=== PATIENT | female | born 1980 | race Caucasian/White ===

== ENCOUNTER 2017-07-07 09:45 | Inpatient (IN) | payer OTHER ==
[~2017-07-07] VITALS: Ht 157.5 cm; Wt 54.0 kg
[2017-07-07 10:45] VITALS: BP 123/83; PULSE 111; RESP 19; Ht 157.5 cm; Wt 54.0 kg
[2017-07-07] MEDS ORDERED: PREN1TAB79 PO (10:47)
[2017-07-07] MEDS: LACTATED RINGER'S 1,000 ML IV SCH ×2 (10:50→20:42)
[2017-07-07] MEDS ORDERED: CEFAZOLIN 2 GM/50 ML (PMX) 50 ML IV SCH (11:00)
[2017-07-07] MEDS ORDERED: OXYTOCIN 30 UNITS/LR 500 ML IV PRN ×2 (11:00→16:00)
[2017-07-07] MEDS ORDERED: MISOPROSTOL 200 MCG TAB PR PRN ×2 (11:00→16:00)
[2017-07-07] MEDS ORDERED: CARBOPROST 250 MCG INJ IM PRN ×2 (11:00→16:00)
[2017-07-07] MEDS ORDERED: METHYLERGONOVINE 0.2 MG INJ IM PRN ×2 (11:00→16:00)
[2017-07-07] MEDS ORDERED: LACTATED RINGER'S 1,000 ML IV ONE (11:06)
[2017-07-07 11:11] LABS: BASOPHILS % 0.2 % (0.0-2.0); EOSINOPHILS % 0.2 % (0.0-7.0); HEMOGLOBIN 11.9 g/dl (12.0-16.0); LYMPHOCYTES # 1.2 10^3/ul (0.8-2.9); LYMPHOCYTES % 9.1 % (15.0-51.0); MEAN CORPUSCULAR HEMOGLOBIN 30.7 pg (29.0-33.0); MEAN CORPUSCULAR VOLUME 90.4 fl (82.0-101.0); MEAN PLATELET VOLUME 10.5 fl (7.4-10.4); MONOCYTE # 0.8 10^3/ul (0.3-0.9); MONOCYTES % 6.3 % (0.0-11.0); NEUTROPHILS % 83.8 % (39.0-77.0); PLATELET COUNT 249 10^3/UL (140-415); RED BLOOD COUNT 3.87 10^6/ul (4.20-5.40); RED CELL DISTRIBUTION WIDTH 12.9 % (11.5-14.5); WHITE BLOOD COUNT 12.7 10^3/ul (4.8-10.8)
[2017-07-07] MEDS ORDERED: FENTAnyl 50 MCG/ML VIAL ONE (11:27)
[2017-07-07] MEDS ORDERED: morphine SULFATE/PF (10 MG/10 ML) INJ ONE (11:27)
[2017-07-07] MEDS ORDERED: ONDANSETRON 4 MG INJ IV ONE (11:30)
[2017-07-07] MEDS ORDERED: CITRIC ACID/NA CITRATE 30 ML CUP PO ONE (11:30)
[2017-07-07 11:39] LABS: INR 0.88; PROTIME 11.9 Sec (12.2-14.2); PT RATIO 0.9
[2017-07-07 11:40] LABS: PARTIAL THROMBOPLASTIN TIME 28.1 Sec (25.0-35.0)
[2017-07-07] MEDS ORDERED: METOCLOPRAMIDE 10 MG INJ ONE (13:05)
[2017-07-07] MEDS ORDERED: PHENYLephrine (100 MCG/ML) 5ML SYG ONE (13:05)
--- NOTE | 2017-07-07 14:30 | OPR ---
Operative Report Planned Procedure Free Text/Dictation 36 years old female 6 para 1 history of previous EDC is July 22, 2017 admitted to [facility] for repeat C- section due to the history of myomectomy was recommended by the perinatologist delivery at 37 weeks patient has signed consent bilateral tubal ligation at the time of her section, failure rate of tubal ligation increased risk of ectopic should failure to conceive and discussed with the patient would like to proceed with a and tubal ligation. Procedure date Jul 07, 2017 Procedure(s) Repeat bilateral tubal ligation Performed by: MACIEJ CID MD Assisting provider: AMY CHRISTOPHER MD Anesthesiologist: SMOOTH CAO MD Pre-procedure diagnosis 37 weeks 6 days history of previous and myomectomy Anesthesia Type: spinal Procedure Description Under satisfactory [] anesthesia, the patient was prepped and draped and placed in a supine position, tilted to the left. Pfannenstiel incision was made, carried through the subcutaneous tissue. Bleeders brought under control with electrocautery. Fascia incised to the length of the incision. Rectus muscles from the fascia, divided midline. Peritoneum exposed, entered through a transverse incision. Exploration of abdomen revealed gravid uterus both tubes and ovaries present. Bladder flap was developed. Transverse incision was made in the lower segment of the uterus. Amniotic sac ruptured. [] amniotic fluid noted light baby girl was delivered and gated vertex. [] Nasal oropharyngeal suction was performed. The baby was handed to the team for immediate attention. placenta delivered manually intact. Uterine cavity was cleaned with wet sponge and drainage established. Uterus closed in 2 layers using [ Monocryl #1] in continuous fashion. Lateral tubal ligation performed identifying the right fallopian tube was densely adhered the ovary segment of the fallopian tube was grasped by a Mirlande suture material used #0 plain catgut was reinforced with the same suture material that portion of the tube was excised cut end of the tube was cauterized specimen submitted to the pathology same procedure performed for the opposite side the specimen together sent to the pathology peritoneal cavity irrigated with warm saline. Sponge, needle and instrument count reported to be correct. Abdominal peritoneum closed with [0 chromic catgut] continuously. Rectus muscle approximated with 0 chromic catgut . Fascia closed with [#1 PDS], subcutaneous tissue approximated with few interrupted 2-0 chromic catgut and closed with N sorb. Estimated blood loss 200 []mL. Urine bag contained [100]mL of clear urine patient tolerated procedure well and transferred to recovery room in good condition. Post-Procedure Findings: Live Baby girl 9 and9 Specimen removed: No Complications: None Pt Condition post procedure: stable Physician Certification I, the undersigned physician, hereby certify that I have discussed the procedure described in this consent form with this patient (or the patient's legal credit representative), including: * The risk and benefits of the procedure; * Any adverse reactions that may reasonably be expected to occur; * Any alternative efficacious methods of treatment which may be medically viable ; * The potential problems that may occur during recuperation; * Potential for blood transfusion and associated risks/benefits; and * Any research or economic interest I may have regarding this treatment. I further certify that the patient/legally responsible person was encouraged to ask question and that all questions were answered. MACIEJ CID MD Jul 07, 2017 14:26
--- NOTE | 2017-07-07 14:39 | HP ---
Date/Time of Note Date/Time of Note DATE: 07/07/17 TIME: 14:31 OB - History Hx of Present Free Text/Dictation 36 years old female 6 para 1 T1 PT 0 SAB 1 IAB 3 L1 to [facility] 37 weeks and 6 days with a history of previous myomectomy and section recommended by the perinatologist delivery at 37 weeks gestation Patient has been under the care of the [facility] was not complicated with gestational diabetes -induced hypertension or any other medical or surgical condition or past history myomectomy 2015 breast augmentation 1996 removal of the breast implant 2011. 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 Chief Complaint: 37 weeks and 6 days previous section and myomectomy itzel Estimated Due Date: Jul 22, 2017 : 6 Para: 1 Spontaneous : 1 Therapeutic : 3 Care: Good Care Ultrasounds: Normal mid trimester US Obstetrical Complications: None Medical Complications: None Past Family/Social History * Past Medical, Surgical, Family and Obstetric Histories reviewed from chart. Rubella: immune RPR/VDRL: Negative GBS Status: Negative OB Admission Exam Vital Signs Vital Signs Vital Signs Date Time Temp Pulse Resp B/P Pulse Ox O2 Delivery O2 Flow Rate FiO2 07/07/17 10:45 98.2 111 19 123/83 99 Room Air Physical Exam HEENT: WNL Heart: Rhythm Normal Lungs: Clear, Equal Abdomen: WNL Extremities: Normal Reflexes: Normal Cervical Dilatation: Fingertip Effacement: 25% Station: -2 Membranes: Intact Heart Rate: 130's Accelerations: Accelerations Present Varibility: Moderate Contractions on Admission: >10 Minutes Apart Intensity: Mild Last 72 hours Lab Results CBC & BMP 07/07/17 10:15 MACIEJ CID MD Jul 07, 2017 14:39
[2017-07-07] MEDS ORDERED: DIPHENHYDRAMINE 50 MG INJ IV PRN (15:00)
[2017-07-07] MEDS ORDERED: NALBUPHINE HCL (10 MG/1 ML) INJ IV PRN (15:00)
[2017-07-07] MEDS ORDERED: NALOXONE (0.4 MG/ML) INJ IV PRN (15:00)
[2017-07-07] MEDS ORDERED: HYDROmorphONE 1 MG/ML SYG IV PRN ×2 (15:00)
[2017-07-07] MEDS ORDERED: KETOROLAC 30 MG INJ IV PRN (15:00)
[2017-07-07] MEDS ORDERED: TRIMETHOBENZAMIDE 100 MG/ML VIAL IM PRN (15:00)
[2017-07-07] MEDS ORDERED: ONDANSETRON 4 MG INJ IV PRN (15:00)
[2017-07-07] MEDS: OXYTOCIN 30 UNITS/LR 500 ML IV SCH ×3 (15:36→23:36)
[2017-07-07] MEDS ORDERED: HYDROCODONE/APAP (5/325) TAB PO PRN ×2 (16:00)
[2017-07-07] MEDS ORDERED: OXYCODONE/ACETAMINOPHEN (5/325) TAB PO PRN ×2 (16:00)
[2017-07-07] MEDS ORDERED: CEFAZOLIN 1 GM/50 ML (PMX) 50 ML IVPB SCH (16:00)
[2017-07-07] MEDS ORDERED: LANOLIN 7 GM TUBE TOP PRN (16:00)
[2017-07-07 17:00] VITALS: BP 106/72; PULSE 72; RESP 19
[2017-07-07 18:00] VITALS: BP 102/72; PULSE 70; RESP 18
[2017-07-07 20:00] VITALS: BP 100/52; PULSE 70; RESP 20
[2017-07-08] MEDS: OXYTOCIN 30 UNITS/LR 500 ML IV SCH ×4 (03:36→15:36)
[2017-07-08 04:11] VITALS: BP 105/68; PULSE 68; RESP 20
[2017-07-08] MEDS: LACTATED RINGER'S 1,000 ML IV SCH (05:02)
[2017-07-08 08:00] VITALS: BP 97/61; PULSE 78; RESP 18
[2017-07-08] MEDS: SENNA/DOCUSATE NA (8.6MG/50MG) TAB PO SCH ×2 (08:58→21:18)
--- NOTE | 2017-07-08 10:35 | PN ---
Date/Time of Note Date/Time of Note DATE: 07/08/17 TIME: 10:33 OB Subjective Subjective Subjective Post day 1 Vital signs stable abdomen soft uterus firm incision healing and dry bowel sounds present ambulation encouraged extremities normal MACIEJ CID MD Jul 08, 2017 10:35
[2017-07-08 10:54] LABS: BASOPHILS % 0.1 % (0.0-2.0); EOSINOPHILS % 0.1 % (0.0-7.0); HEMATOCRIT 34.1 % (37.0-47.0); HEMOGLOBIN 11.4 g/dl (12.0-16.0); LYMPHOCYTES % 7.5 % (15.0-51.0); MEAN CORPUSCULAR HEMOGLOBIN 30.2 pg (29.0-33.0); MEAN CORPUSCULAR HGB CONC 33.4 g/dl (32.0-37.0); MEAN CORPUSCULAR VOLUME 90.5 fl (82.0-101.0); MEAN PLATELET VOLUME 10.4 fl (7.4-10.4); MONOCYTE # 0.8 10^3/ul (0.3-0.9); MONOCYTES % 5.5 % (0.0-11.0); NEUTROPHILS % 86.3 % (39.0-77.0); PLATELET COUNT 255 10^3/UL (140-415); RED BLOOD COUNT 3.77 10^6/ul (4.20-5.40); RED CELL DISTRIBUTION WIDTH 13.2 % (11.5-14.5); WHITE BLOOD COUNT 13.8 10^3/ul (4.8-10.8)
[2017-07-08 12:00] VITALS: BP 98/55; PULSE 80; RESP 18
[2017-07-08 15:55] VITALS: BP 118/82; PULSE 84; RESP 18
[2017-07-08] MEDS: IBUPROFEN 600 MG TAB PO SCH ×2 (18:00→23:48)
[2017-07-08 20:00] VITALS: BP 110/68; PULSE 79; RESP 16
[2017-07-09 04:00] VITALS: BP 114/59; PULSE 77; RESP 19
[2017-07-09] MEDS: IBUPROFEN 600 MG TAB PO SCH ×4 (06:54→23:56)
[2017-07-09 08:00] VITALS: BP 101/51; PULSE 64; RESP 18
[2017-07-09] MEDS: SENNA/DOCUSATE NA (8.6MG/50MG) TAB PO SCH ×2 (09:00→20:42)
--- NOTE | 2017-07-09 11:03 | PN ---
Date/Time of Note Date/Time of Note DATE: 07/09/17 TIME: 11:01 OB Subjective Subjective Subjective July 09, 2017 Post C section day 2 Doing Well Afebrile Ambulatory Chest Clear Breasts are soft , Nipples are intact Abdomen is soft Fundus is firm Moderate amount of lochia Incision is clean ,No evidence of infection No calf tenderness No ankle edema Current Medications Medications (Trade) Dose Ordered Sig/Ami Route PRN Reason Start Time Stop Time Status Last Admin Dose Admin Lactated Ringer's 1,000 ml @ 125 mls/hr Q8H IV 07/07/17 10:43 07/07/17 15:42 DC 07/07/17 10:50 Cefazolin Sodium/ Dextrose 50 ml @ 100 mls/hr ONCE IV 07/07/17 11:00 07/07/17 15:42 DC Oxytocin/Lactated Ringer's 500 ml @ 0 mls/hr ONCE PRN IV For Hemorrhage Management 07/07/17 11:00 07/07/17 15:42 DC 07/07/17 15:31 Methylergonovine Maleate (Methergine) 0.2 mg ONCE PRN IM VAGINAL BLEEDING 07/07/17 11:00 07/07/17 15:42 DC Carboprost Tromethamine (Hemabate) 250 mcg ONCE PRN IM VAGINAL BLEEDING 07/07/17 11:00 07/07/17 15:42 DC Misoprostol 1000 mcg 1,000 mcg ONCE PRN AL VAGINAL BLEEDING 07/07/17 11:00 07/07/17 15:42 DC Lactated Ringer's (Lr) 1,000 ml @ 1,000 mls/hr Q1H ONCE IV 07/07/17 11:06 07/07/17 12:05 DC 07/07/17 12:02 Ondansetron HCl (Zofran Inj) 4 mg pre-procedure ONCE IV 07/07/17 11:30 07/07/17 11:31 DC 07/07/17 12:03 Citric Acid/ Sodium Citrate (Bicitra) 30 ml PRE-OP ONCE PO 07/07/17 11:30 07/07/17 11:31 DC 07/07/17 12:03 Fentanyl (Sublimaze) 100 mcg STK-MED ONCE .ROUTE 07/07/17 11:27 07/07/17 11:28 DC Morphine Sulfate (Duramorph) 10 mg STK-MED ONCE .ROUTE 07/07/17 11:27 07/07/17 11:28 DC Metoclopramide HCl (Reglan) 10 mg STK-MED ONCE .ROUTE 07/07/17 13:05 07/07/17 13:06 DC Phenylephrine HCl (Eder-Synephrine Inj Syg) 500 mcg STK-MED ONCE .ROUTE 07/07/17 13:05 07/07/17 13:06 DC Naloxone HCl (Narcan) 0.1 mg Q2M PRN IV FOR RESP RATE 8 OR LESS 07/07/17 15:00 07/08/17 14:59 DC Ketorolac Tromethamine (Toradol) 30 mg Q6H PRN IV PAIN 07/07/17 15:00 07/08/17 14:59 DC 07/08/17 14:38 Hydromorphone HCl (Dilaudid) 0.2 mg Q3H PRN IV PAIN LEVEL 1-5 07/07/17 15:00 07/08/17 14:59 DC Hydromorphone HCl (Dilaudid) 0.4 mg Q3H PRN IV PAIN LEVEL 6-10 07/07/17 15:00 07/08/17 14:59 DC Diphenhydramine HCl (Benadryl) 25 mg Q6H PRN IV ITCHING 07/07/17 15:00 07/08/17 14:59 DC Nalbuphine HCl (Nubain) 5 mg ONCE PRN IV ITCHING 07/07/17 15:00 07/08/17 14:59 DC Ondansetron HCl (Zofran Inj) 4 mg Q6H PRN IV NAUSEA AND/OR VOMITING 07/07/17 15:00 07/08/17 14:59 DC Trimethobenzamide HCl (Tigan) 200 mg Q6H PRN IM NAUSEA AND/OR VOMITING 07/07/17 15:00 07/08/17 14:59 DC Miscellaneous Information (* Miscellaneous Pharmacy Order) Duramorph: 0.2 mg Spi... GIVEN XX 07/07/17 15:00 07/07/17 15:42 DC Acetaminophen/ Hydrocodone Bitart ([place] (5/325)) 1 tab Q4H PRN PO PAIN LEVEL 4-6 07/07/17 16:00 Acetaminophen/ Hydrocodone Bitart ([place] (5/325)) 2 tab Q4H PRN PO PAIN LEVEL 7-10 07/07/17 16:00 Oxycodone/ Acetaminophen (Percocet (5/ 325)) 1 tab Q4H PRN PO PAIN LEVEL 4-6 07/07/17 16:00 Oxycodone/ Acetaminophen (Percocet (5/ 325)) 2 tab Q4H PRN PO PAIN LEVEL 7-10 07/07/17 16:00 Ibuprofen (Motrin) 600 mg Q6 PO 07/08/17 18:00 07/09/17 06:54 Simethicone (Mylicon) 160 mg Q8H PRN PO DISTENSION/GAS/BLOATING 07/07/17 16:00 07/08/17 15:06 Senna/Docusate Sodium (Senokot-S) 1 tab BID PO 07/08/17 09:00 07/08/17 21:18 Lanolin ([id number]) 1 applic BEDSIDE MEDICATION PRN TOP BEDSIDE FOR GLO TO NIPPLES 07/07/17 16:00 Diphtheria/ Tetanus/Acell Pertussis 0.5 ml 0.5 ml ONCE ONCE IM* 07/10/17 09:00 07/10/17 09:01 Oxytocin/Lactated Ringer's 500 ml @ 0 mls/hr ONCE PRN IV For Hemorrhage Management 07/07/17 16:00 Methylergonovine Maleate (Methergine) 0.2 mg ONCE PRN IM VAGINAL BLEEDING 07/07/17 16:00 Carboprost Tromethamine (Hemabate) 250 mcg ONCE PRN IM VAGINAL BLEEDING 07/07/17 16:00 Misoprostol 1000 mcg 1,000 mcg ONCE PRN AL VAGINAL BLEEDING 07/07/17 16:00 Cefazolin Sodium 50 ml @ 100 mls/hr ONCE IVPB 07/07/17 16:00 07/07/17 16:29 DC 07/07/17 18:04 Oxytocin/Lactated Ringer's 500 ml @ 125 mls/hr Q4H IV 07/07/17 15:36 07/08/17 15:57 DC New born is doing well, Breast feeding CRESENCIO TRISTAN MD Jul 09, 2017 11:03
[2017-07-09 15:59] VITALS: BP 104/69; PULSE 72; RESP 18
[2017-07-09 20:15] VITALS: BP 112/71; PULSE 79; RESP 18
[2017-07-10 04:15] VITALS: BP 105/71; PULSE 66; RESP 19
[2017-07-10] MEDS: IBUPROFEN 600 MG TAB PO SCH (05:39)
[2017-07-10 08:00] VITALS: PULSE 73; RESP 16
[2017-07-10] MEDS ORDERED: DIPHTH/TET/ACEL PERTUSS (ADULT) 0.5 ML VIAL IM* ONE (09:00)
[2017-07-10] MEDS: SENNA/DOCUSATE NA (8.6MG/50MG) TAB PO SCH (09:17)
--- NOTE | 2017-07-10 10:06 | PD.PPDC ---
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 Condition Patient Condition: Good Diet Diet: Resume Regular Diet Activity/Restrictions Activity: Normal Activity May Shower Restrictions: No Exercising No Lifting No Driving No Sexual Activity Nothing in the Vagina No [place] No Tampons, douche Wound/Drain Care Instructions Wound/Drain Care Instructions: Remove Steri Strips in 1 week Follow-up Follow-up with Physician: 1, Week/Weeks Provider Information: Appointment clinic in 1 week for post check Return to clinic for [employer] Instructions: Fever greater than 101 Chills Worsening abdominal pain Excessive Vaginal Bleeding More than 2 pads per hour Unable to tolerate diet OB Instructions: Breast Tenderness Depression Blurried Vision Headache MACIEJ CID MD Jul 10, 2017 10:06
--- NOTE | 2017-07-10 10:10 | DS ---
Date/Time of Note Date/Time of Note DATE: 07/10/17 TIME: 10:07 Discharge Summary Admission/Discharge Info Admit Date/Time Jul 07, 2017 at 09:45 Discharge Date/Time July 10, 2017 at 10 AM Discharge Diagnosis Term history of previous Patient Condition: Good Procedures Repeat Hx of Present Illness Term history of previous Hospital Course Satisfactory uneventful Home Meds Reported Medications Vit W-Ca,Fe,FA(<1 mg) ( Vitamins) 1 Each Tablet, 1 EACH PO, TAB 07/07/17 Follow-up Plan Post instructions given recommended to make appointment to be seen at the clinic in 1 week Primary Care Provider Osiel Conley MD Time spent on discharge: < 30 minutes MACIEJ CID MD Jul 10, 2017 10:09
== END 2017-07-10 11:15 | disposition home or self-care (01) | DRG 766 ==
LOC: L-D 09:45 → PP1 16:47
PROVIDERS: ADMIT Obstetrics & Gynecology; ATTEND Obstetrics & Gynecology
PROC: 0UB70ZZ Excision of Bilateral Fallopian Tubes, Open Approach (ICD-10-PCS; 2017-07-07)
PROC: 10D00Z1 Extraction of Products of Conception, Low, Open Approach (ICD-10-PCS; principal; 2017-07-07 12:30)
DX: O34.211 Maternal care for low transverse scar from previous cesarean delivery (principal); Z30.2 Encounter for sterilization; Z37.0 Single live birth; Z3A.37 37 weeks gestation of pregnancy
CPT/HCPCS: 85025; 85610; 85730; 86592; 86850; 86900; 86901; 87340; 88302; 90715; 94760; 99464; J0690; J1885; J2274; J2370; J2405; J2590; J2765; J3010; J7120